=== PATIENT | male | born 1945 | race Caucasian/White ===

== ENCOUNTER 2021-11-03 12:08 | Day surgery (SDC) | payer BC, MEDICARE ==
[~2021-11-03] VITALS: Ht 180.3 cm; Wt 125.0 kg
[~2021-11-03 12:08] MED LIST: ASPIRIN 32325 MG/TAB PO; DIABETA 5MG5 MG/TAB PO; GLUCOPHAGE XR500 M1 PO; GLUCOPHAGE1000 MG PO; PAXIL 10MG10 MG PO; PERCOCET 325 MG1 TA2 PO; PRAVACHOL10 MG PO
[2021-11-03 13:20] VITALS: BP 146/66; PULSE 73; TEMP 99
[2021-11-03] MEDS ORDERED: TYLENOL 325MG325 MG PO (13:54)
[2021-11-03] MEDS ORDERED: COENZYME Q-10100 M1 PO (13:55)
[2021-11-03] MEDS ORDERED: EPA FISH OIL1 SGL PO (13:56)
[2021-11-03] MEDS ORDERED: NITROSTAT0.4 MG/TAB SL (13:57)
[2021-11-03] MEDS ORDERED: ARICEPT10 MG PO (13:57)
[2021-11-03] MEDS ORDERED: IMDUR 30MG30 MG/TAB PO (13:58)
[2021-11-03] MEDS ORDERED: PRINIVIL5 MG PO (13:59)
[2021-11-03] MEDS ORDERED: K-TAB10 PO (14:00)
[2021-11-03] MEDS ORDERED: NYSTATIN POWDER30 GM TOP (14:04)
[2021-11-03] MEDS ORDERED: ZOLOFT 25MG25 MG PO (14:05)
[2021-11-03] MEDS ORDERED: PROTONIX 40MG T40 MG PO (14:07)
[2021-11-03] MEDS ORDERED: FARXIGA10 PO (14:07)
[2021-11-03] MEDS ORDERED: BASAGLAR K100 UNIT/1 SQ (14:08)
[2021-11-03] MEDS ORDERED: NOVOLOG FLEX100 U/ML SQ (14:14)
[2021-11-03] MEDS ORDERED: LASIX 20MG TABL20 MG PO (14:15)
[2021-11-03] MEDS ORDERED: FLOMAX 0.40.4 MG/CAP PO (14:17)
[2021-11-03] MEDS ORDERED: MYRBETR50MG PO (14:17)
[2021-11-03] MEDS ORDERED: TOPROL XL 25MG25 MG PO (14:19)
[2021-11-03] MEDS ORDERED: NORCO 325 MG-51 TAB PO (14:21)
[2021-11-03 15:09] VITALS: TEMP 97.7
[2021-11-03 15:30] VITALS: BP 148/66; PULSE 71
--- NOTE | 2021-11-03 15:30 | NUR ---
Patient returns to room 6 per cart from PACU accompanied by Danette MENDOSA and is awake and alert. Temp 97.9. Denies pain or nausea. Drinking diet Pepsi. Had been incontinent of urine in PACU and also voids 100ml of yellow urine in urinal. IV fluids infusing.
[2021-11-03 15:45] VITALS: BP 126/64; PULSE 70
--- NOTE | 2021-11-03 15:45 | NUR ---
IV discontinued and scott cares done. Dressed and transferred into wheelchair with total lift. Ride notified that patient is ready for discharge.
[2021-11-03 16:00] VITALS: BP 131/70; PULSE 73
--- NOTE | 2021-11-03 16:00 | NUR ---
Given discharge instructions and voices understanding of these.
--- NOTE | 2021-11-03 16:01 | NUR ---
Patient escorted to emergency room entrance per motorized wheelchair and into wheelchair van. Instructions reviewed with son and voices understanding of these.
--- NOTE | 2021-11-03 16:05 | NUR ---
Instructions signed and patient dismissed to home driven by son per wheelchair van.
== END 2021-11-03 16:05 | disposition home or self-care (01) ==
LOC: SDCO 12:08
DX: N35.919 Unspecified urethral stricture, male, unspecified site (principal); N32.89 Other specified disorders of bladder; K59.09 Other constipation; N18.9 Chronic kidney disease, unspecified; R31.0 Gross hematuria; R39.12 Poor urinary stream; E11.9 Type 2 diabetes mellitus without complications; I25.10 Atherosclerotic heart disease of native coronary artery without angina pectoris; I10 Essential (primary) hypertension; E66.9 Obesity, unspecified; E78.5 Hyperlipidemia, unspecified; M19.90 Unspecified osteoarthritis, unspecified site; G89.29 Other chronic pain; M54.9 Dorsalgia, unspecified; G47.33 Obstructive sleep apnea (adult) (pediatric); F32.A Depression, unspecified; F41.9 Anxiety disorder, unspecified; Z79.02 Long term (current) use of antithrombotics/antiplatelets; Z79.82 Long term (current) use of aspirin; Z79.899 Other long term (current) drug therapy; Z79.4 Long term (current) use of insulin; Z95.1 Presence of aortocoronary bypass graft; Z99.89 Dependence on other enabling machines and devices
CPT/HCPCS: J0690; J2704; J3010